=== PATIENT | male | born 1990 | race Caucasian/White ===

== ENCOUNTER 2017-04-13 18:51 | Emergency (ER) | payer BC, OTHER ==
[2017-04-13 19:22] VITALS: BP 124/82
--- NOTE | 2017-04-13 20:21 | EDM.PDOC ---
ED HPI GENERAL MEDICAL PROBLEM - General Chief Complaint: ENT Problem Stated Complaint: POSS NECK INJURY Time Seen by Provider: 04/13/17 19:18 Source of Information: Reports: Patient, RN Notes Reviewed History Limitations: Reports: No Limitations - History of Present Illness INITIAL COMMENTS - FREE TEXT/NARRATIVE: The patient states that he noticed a bump inferior to his left ear about 5 days ago. It is tender to palpation. He then developed a headache about 3 days ago. He denies any URI symptoms, such as nasal congestion, sneezing, or rhinorrhea, however, he does admit that his ears have been feeling full for the past 5 days. He reports some nausea. No recent fever, vomiting, constipation, diarrhea , or urinary symptoms. No prior similar symptoms. The patient does not have a PCP. Left Throat Pain Score (Numeric/FACES): 7 - Related Data Allergies Allergy/AdvReac Type Severity Reaction Status Date / Time No Known Allergies Allergy Verified 04/13/17 19:18 Home Meds: Home Meds Escitalopram [Lexapro] 20 mg PO DAILY 04/13/17 [History] Past Medical History Psychiatric History: Reports: Depression - Past Surgical History HEENT Surgical History: Reports: Tonsillectomy Social & Family History - Tobacco Use Smoking Status *Q: Never Smoker Second Hand Smoke Exposure: No - Caffeine Use Caffeine Use: Reports: None - Alcohol Use Alcohol Use History: Yes Alcohol Use Frequency: Socially - Recreational Drug Use Recreational Drug Use: No - Living Situation & Occupation Living situation: Reports: Single, Alone 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) ED ROS GENERAL - Review of Systems Review Of Systems: See Below Constitutional: Reports: No Symptoms HEENT: Reports: No Symptoms Respiratory: Reports: No Symptoms Cardiovascular: Reports: No Symptoms Endocrine: Reports: No Symptoms GI/Abdominal: Reports: No Symptoms : Reports: No Symptoms Musculoskeletal: Reports: No Symptoms Skin: Reports: No Symptoms Neurological: Reports: No Symptoms Psychiatric: Reports: No Symptoms Hematologic/Lymphatic: Reports: No Symptoms Immunologic: Reports: No Symptoms ED EXAM, GENERAL - Physical Exam Exam: See Below Exam Limited By: No Limitations General Appearance: Alert, WD/WN, No Apparent Distress Eye Exam: Bilateral Eye: Normal Inspection Ears: Normal External Exam, Normal Canal, Hearing Grossly Normal, Other (Mild bulging to the bilateral tympanic membranes. No erythema or bubbles.) Nose: Normal Inspection, No Blood, Other (Bilateral nasal mucosal edema. No rhinorrhea.) Throat/Mouth: Normal Inspection, Normal Lips, Normal Teeth, Normal Gums, Normal Oropharynx, Normal Voice, No Airway Compromise Head: Atraumatic, Normocephalic Neck: Normal Inspection, Supple, Non-Tender, Full Range of Motion, Lymphadenopathy (L) (Likely the junctional node. Tender to palpation.) Respiratory/Chest: No Respiratory Distress, Lungs Clear, Normal Breath Sounds, No Accessory Muscle Use Cardiovascular: Normal Peripheral Pulses, Regular Rate, Rhythm, No Gallop, No JVD, No Murmur, No Rub Peripheral Pulses: 4+: Radial (L), Radial (R) GI/Abdominal: Normal Bowel Sounds, Soft, Non-Tender, No Organomegaly, No Distention, No Abnormal Bruit, No Mass (Male) Exam: Deferred Rectal (Males) Exam: Deferred Back Exam: Normal Inspection, Full Range of Motion, NT Extremities: Normal Inspection, Normal Range of Motion, No Pedal Edema, Normal Capillary Refill Neurological: Alert, Oriented, Normal Cognition, Normal Gait, No Motor/Sensory Deficits Psychiatric: Normal Affect, Normal Mood Skin Exam: Warm, Dry, Intact, Normal Color, No Rash Course - Vital Signs Last Recorded V/S: Last Vital Signs Temp 36.9 C 04/13/17 19:18 Pulse 69 04/13/17 19:18 Resp 18 04/13/17 19:18 BP 124/82 04/13/17 19:18 Pulse Ox 96 04/13/17 19:18 - Re-Assessments/Exams Free Text/Narrative Re-Assessment/Exam: 04/13/17 20:16 Clinically, the patient has a mildly enlarged left junctional lymph node. On examination, he has bilateral nasal mucosal edema, and mild bulging of his bilateral tympanic membranes, consistent with a viral URI. I'm recommending over -the-counter oxymetazoline nasal spray and saline nasal spray. Departure - Departure Time of Disposition: 20:18 Disposition: Home, Self-Care 01 Condition: Good Clinical Impression: Viral URI, Lymphadenopathy of left cervical region - Discharge Information Instructions: Lymphadenopathy, Upper Respiratory Infection, Adult, [id number] Referrals: PCP,Not In Area [Primary Care Provider] - Forms: ED Department Discharge Additional Instructions: You were seen in the emergency room for a tender lump on the upper left side of your neck. On examination, you have a mildly enlarged lymph node. Based on your examination , this is likely due to a viral URI. You may get some relief with [id number] oxymetazoline nasal spray. Purchase a "pump mist" bottle. [place] one spray up each nostril, wait 5 minutes, then spray a second spray up each nostril. Repeat every 12 hours, for MAXIMUM of 5 days. We would also recommend you purchase [id number] saline spray in a pressurized canister, such as "Simply Saline". [place] this up each nostril many times per day. If any other problems, please do not hesitate to return to the ER.
== END 2017-04-13 20:28 | disposition home or self-care (01) ==
LOC: JD.ED 18:51
DX: J06.9 Acute upper respiratory infection, unspecified (principal); R59.0 Localized enlarged lymph nodes; Z79.899 Other long term (current) drug therapy; Z98.890 Other specified postprocedural states; F32.9 Major depressive disorder, single episode, unspecified
CPT/HCPCS: 99282; 99283

== ENCOUNTER 2017-06-14 01:37 | Emergency (ER) | payer BC, OTHER ==
[2017-06-14 01:51] VITALS: BP 121/78
--- NOTE | 2017-06-14 02:08 | EDM.PDOC ---
ED HPI GENERAL MEDICAL PROBLEM - General Chief Complaint: Upper Extremity Injury/Pain Stated Complaint: WIRE IN LEFT ARM Time Seen by Provider: 06/14/17 01:49 Source of Information: Reports: Patient, RN Notes Reviewed History Limitations: Reports: No Limitations - History of Present Illness INITIAL COMMENTS - FREE TEXT/NARRATIVE: The patient states that he was tightening a wire at work around 01:00 this morning, when the wire broke, and snapped back, striking the patient on the left forearm. The patient has a puncture wound to the mid-left forearm, with some swelling and tenderness proximal to the puncture wound. The patient is concerned that a piece of the wire has broken off in his left forearm. The patient is otherwise uninjured. The patient's last tetanus vaccination was about 5 years ago. Left Lower Arm Pain Score (Numeric/FACES): 3 - Related Data Allergies Allergy/AdvReac Type Severity Reaction Status Date / Time No Known Allergies Allergy Verified 06/14/17 01:48 Home Meds: Home Meds Amoxicillin/Clavulanate K [Augmentin 875 MG/125 MG] 1 tab PO Q12HR #10 tablet [Rx] Past Medical History Psychiatric History: Reports: Depression - Past Surgical History HEENT Surgical History: Reports: Tonsillectomy Social & Family History - Tobacco Use Smoking Status *Q: Never Smoker Second Hand Smoke Exposure: No - Caffeine Use Caffeine Use: Reports: None - Alcohol Use Alcohol Use History: Yes Alcohol Use Frequency: Socially - Recreational Drug Use Recreational Drug Use: No - Living Situation & Occupation Living situation: Reports: Single, Alone 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) Review of Systems - Review of Systems Review Of Systems: See Below Constitutional: Reports: No Symptoms Eyes: Reports: No Symptoms Ears: Reports: No Symptoms Nose: Reports: No Symptoms Mouth/Throat: Reports: No Symptoms Respiratory: Reports: No Symptoms Cardiovascular: Reports: No Symptoms GI/Abdominal: Reports: No Symptoms Genitourinary: Reports: No Symptoms Musculoskeletal: Reports: No Symptoms Skin: Reports: No Symptoms Neurological: Reports: No Symptoms Psychiatric: Reports: No Symptoms ED EXAM, GENERAL - Physical Exam Exam: See Below Exam Limited By: No Limitations General Appearance: Alert, WD/WN, No Apparent Distress Extremities: Other (There is a small puncture wound to the mid-left forearm, volar aspect, with mild swelling and considerable tenderness for approximately 3 cm proximal to the puncture wound. No palpable foreign body, however, examination is somewhat limited by tenderness. Neurovascular status of the left upper extremity is intact.) Course - Vital Signs Last Recorded V/S: Last Vital Signs Temp 36.2 C 06/14/17 01:49 Pulse 61 06/14/17 01:49 Resp 16 06/14/17 01:49 BP 121/78 06/14/17 01:49 Pulse Ox 98 06/14/17 01:49 - Orders/Labs/Meds Orders: Active Orders 24 hr Category Date Time Status Forearm 2V Lt [CR] Stat Exams 06/14/17 02:04 Taken - Re-Assessments/Exams Free Text/Narrative Re-Assessment/Exam: 06/14/17 03:23 2-view radiographs of the patient's left forearm appear to be unremarkable. No foreign bodies identified. Formal read per the Radiologist pending. 06/14/17 03:26 X-ray results discussed with the patient. As above, no metallic foreign bodies were identified. There are less, the patient appears to have a puncture wound to his left forearm, therefore I have ordered Augmentin, and will e-prescribe a five-day course. Departure - Departure Time of Disposition: 03:27 Disposition: Home, Self-Care 01 Condition: Good Clinical Impression: Puncture wound of left forearm - Discharge Information Referrals: PCP,None [Primary Care Provider] - Forms: ED Department Discharge Additional Instructions: You were seen in the emergency room after your left forearm was punctured by a broken wire at work. Workup in the ER included x-rays of your left forearm, which do not show any metallic objects in your arm. Nevertheless, it does appear that you have a puncture wound to your forearm. You have therefore been started on the antibiotic Augmentin. Take one tablet every 12 hours, as prescribed. If your symptoms worsen, or fail to improve, please follow-up with Dr. Hanson in the clinic. If any other problems, please do not hesitate to return to the ER. - My Orders Last 24 Hours: My Active Orders 06/14/17 02:04 Forearm 2V Lt [CR] Stat - Assessment/Plan Last 24 Hours: My Active Orders 06/14/17 02:04 Forearm 2V Lt [CR] Stat
[2017-06-14] MEDS ORDERED: Amoxicillin/Clavulanate K 875-125 MG Tab PO ONE (03:26)
--- NOTE | 2017-06-16 08:34 | CR ---
Left forearm: Two portable views of the left forearm were obtained. Comparison: No prior study. Small calcification seen off the ulnar styloid process which appears old. No acute fracture or other bony abnormality is identified. Small soft tissue calcification or foreign body seen within the more proximal forearm. This does not appear to be metallic. Impression: 1. Small soft tissue findings as described above. 2. No bony abnormality is identified. No metallic foreign object is seen. Diagnostic code #2
== END 2017-06-14 03:40 | disposition home or self-care (01) ==
LOC: JD.ED 01:37
DX: S51.832A Puncture wound without foreign body of left forearm, initial encounter (principal); W22.8XXA Striking against or struck by other objects, initial encounter
CPT/HCPCS: 73090; 99283; A9270

== ENCOUNTER 2018-01-26 20:06 | Emergency (ER) | payer BC ==
[2018-01-26 20:14] VITALS: BP 123/79
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
[2018-01-26 21:31] LABS: ACETAMINOPHEN 0 ug/mL (10-30)
== END 2018-01-27 00:30 ==
LOC: JD.ED 20:06
DX: F32.9 Major depressive disorder, single episode, unspecified (principal); R45.851 Suicidal ideations
CPT/HCPCS: 36415; 80053; 80306; 84443; 85007; 85027; 93005; 99285; G0480